=== PATIENT | female | born 1965 ===

== ENCOUNTER 2020-11-16 12:15 | Inpatient (IN) | payer OTHER ==
[~2020-11-16] VITALS: Ht 165.1 cm; Wt 135.2 kg
[2020-11-19] MEDS ORDERED: DILTIAZEM ER300 M2 PO (08:40)
[2020-11-19] MEDS ORDERED: IRBESARTAN-HCT1 EAC1 PO (08:41)
[2020-11-19] MEDS ORDERED: PERSANTINE25 MG PO (08:42)
[2020-11-19] MEDS ORDERED: CARVEDILOL6.25 MG (08:42)
[2020-11-19] MEDS ORDERED: PLAVIX75 MG PO (08:42)
[2020-11-19] MEDS ORDERED: LAMOTRIGINE250 MG PO (08:43)
[2020-11-19] MEDS ORDERED: ABILIFY5 MG PO (08:43)
[2020-11-19] MEDS ORDERED: ULTRAM50 MG PO (08:43)
[2020-11-19] MEDS ORDERED: CLONAZEPAM0.5 MG PO (08:43)
[2020-11-19] MEDS ORDERED: PRESERVISION A1 EAC2 PO (08:44)
[2020-11-21] MEDS ORDERED: LAMICTAL150 MG (08:27)
== END 2020-11-22 14:00 | disposition home or self-care (01) | DRG 747 ==
LOC: O/R 11-21 05:00 → OB/GYN 11-21 05:00
PROVIDERS: ADMIT Specialist; ATTEND Specialist
PROC: 0UTC7ZZ Resection of Cervix, Via Natural or Artificial Opening (ICD-10-PCS; principal; 2020-11-21 08:15)
DX: N88.8 Other specified noninflammatory disorders of cervix uteri (principal); Z90.711 Acquired absence of uterus with remaining cervical stump; I11.9 Hypertensive heart disease without heart failure